=== PATIENT | female | born 1985 | race Caucasian/White ===

== ENCOUNTER 2024-04-26 04:48 | Emergency (ER) | payer MEDICAID ==
[~2024-04-26] VITALS: Ht 149.9 cm; Wt 59.0 kg
[2024-04-26 04:55] VITALS: BP_SYST 178; PULSE 104; RESP 22; TEMP 97.3; O2SAT 96
[2024-04-26 05:18] VITALS: BP_SYST 163; PULSE 101; RESP 22; TEMP 97.2; O2SAT 97
[2024-04-26] MEDS: NEOMY SULF/BACITRAC ZN/POLY 28 GM OINT..GM. TP SCH (05:23)
== END 2024-04-26 05:18 ==
LOC: SED 04:48
DX: M25.512 Pain in left shoulder (principal); M25.511 Pain in right shoulder; M25.572 Pain in left ankle and joints of left foot; M25.571 Pain in right ankle and joints of right foot
CPT/HCPCS: 99283